=== PATIENT | male | born 1955 | race African-American/Black ===

== ENCOUNTER 2016-09-30 10:00 | Emergency (ER) | payer SELFPAY ==
[~2016-09-30] VITALS: Ht 185.4 cm; Wt 93.5 kg
[~2016-09-30 10:00] MED LIST: LISI-519 PO
[2016-09-30 10:05] VITALS: BP 125/84; PULSE 103; RESP 17; TEMP 97.6; O2SAT 96
[2016-09-30] MEDS ORDERED: ASPI81CH CHEW (10:22)
[2016-09-30] MEDS ORDERED: SODIUM CHLORIDE 0.9% FLUSH 10 ML FLUSH IVF PRN (10:30)
--- NOTE | 2016-09-30 10:40 | PD ---
HPI Chief Complaint: Dizziness Time Seen by Provider: 10:11 Travel History International Travel<30 days: No Contact w/Intl Traveler<30days: No History of Present Illness HPI 61-year-old male with history of HTN here with complaint of dizziness. For the last 5 days patient has been dizzy. He describes this both as a sense of lightheadedness as though he is going to faint, and a sense of vertigo as though he is ambulating like he is intoxicated. Patient has had now 5 episodes where he has fallen as a result of this. All of which has been when he's gotten up to ambulate. His symptoms certainly are made worse with standing and improved with rest though did not completely resolve with rest. He does have some sense of symptoms being worsened with movement of the head and has had a pressure-like feeling within the right ear but no pain or discharge. No history of vertigo, syncope. Denies any chest pain, shortness of breath or palpitations. PFSH Past Medical History Diminished Hearing: No Hypertension: Yes Immunizations Current: No Tetanus Vaccination: < 5 Years Influenza Vaccination: No Past Surgical History Surgical History: No Previous Surgery Social History Alcohol Use: Yes (1-2 beers per day) Tobacco Use: Yes (1/2 ppd) Substance Use: Yes (occasional marijuana) Allergies-Medications (Allergen,Severity, Reaction): Coded Allergies: No Known Allergies (Verified , 09/30/16) Reported Meds & Prescriptions Reported Meds & Active Scripts Active Lisinopril 5 Mg Tab 5 Mg PO DAILY 7 Days Reported Aspirin 81 Mg Chew 81 Mg CHEW DAILY Review of Systems Except as stated in HPI: all other systems reviewed are Neg Physical Exam Narrative GENERAL: Well-appearing male in no acute distress SKIN: Focused skin assessment warm/dry. HEAD: Normocephalic. EYES: Pupils equal and round. No scleral icterus. No injection or drainage. EOMI without nystagmus ENT: No nasal bleeding or discharge. Mucous membranes pink and moist. TMs clear bilaterally. Minimal cerumen in the right external auditory canal NECK: Supple CARDIOVASCULAR: Regular rate and rhythm. No murmur appreciated. RESPIRATORY: No accessory muscle use. Clear to auscultation. Breath sounds equal bilaterally. GASTROINTESTINAL: Abdomen soft, non-tender, nondistended. MUSCULOSKELETAL: No obvious deformities. No edema. NEUROLOGICAL: Awake and alert. No obvious cranial nerve deficits. Motor grossly within normal limits. Normal speech. With [id number] and heel [place] patient doesn't have any evidence of ataxia, however when patient ambulates with tandem gait he is ataxic with veering to the right. PSYCHIATRIC: Appropriate mood and affect; insight and judgment normal. Data Data Last Documented VS Vital Signs Date Time Temp Pulse Resp B/P Pulse Ox O2 Delivery O2 Flow Rate FiO2 09/30/16 11:06 83 16 103/60 84 16 120/80 122/80 09/30/16 11:01 97 Room Air 09/30/16 10:05 97.6 Orders Electrocardiogram (09/30/16 10:30) Prothrombin Time / Inr (Pt) (09/30/16 10:30) Act Partial Throm Time (Ptt) (09/30/16 10:30) Complete Blood Count With Diff (09/30/16 10:30) Basic Metabolic Panel (Bmp) (09/30/16 10:30) Troponin I (09/30/16 10:30) Ecg Monitoring (09/30/16 10:30) Iv Access Insert/Monitor (09/30/16 10:30) Oximetry (09/30/16 10:30) Sodium Chloride 0.9% Flush (Ns Flush) (09/30/16 10:30) Mri Brain W/O Contrast (09/30/16 ) Labs Laboratory Tests Test 09/30/16 10:26 White Blood Count 4.3 TH/MM3 Red Blood Count 4.73 MIL/MM3 Hemoglobin 15.0 GM/DL Hematocrit 44.8 % Mean Corpuscular Volume 94.7 FL Mean Corpuscular Hemoglobin 31.7 PG Mean Corpuscular Hemoglobin 33.5 % Concent Red Cell Distribution Width 12.8 % Platelet Count 169 TH/MM3 Mean Platelet Volume 9.6 FL Neutrophils (%) (Auto) 28.9 % Lymphocytes (%) (Auto) 57.0 % Monocytes (%) (Auto) 11.9 % Eosinophils (%) (Auto) 1.5 % Basophils (%) (Auto) 0.7 % Neutrophils # (Auto) 1.3 TH/MM3 Lymphocytes # (Auto) 2.5 TH/MM3 Monocytes # (Auto) 0.5 TH/MM3 Eosinophils # (Auto) 0.1 TH/MM3 Basophils # (Auto) 0.0 TH/MM3 CBC Comment DIFF FINAL Differential Comment Prothrombin Time 11.0 SEC Prothromb Time International 1.0 RATIO Ratio Activated Partial 29.0 SEC Thromboplast Time Sodium Level 135 MEQ/L Potassium Level 3.9 MEQ/L Chloride Level 98 MEQ/L Carbon Dioxide Level 28.8 MEQ/L Anion Gap 8 MEQ/L Blood Urea Nitrogen 13 MG/DL Creatinine 0.95 MG/DL Estimat Glomerular Filtration 98 ML/MIN Rate Random Glucose 101 MG/DL Calcium Level 9.7 MG/DL Troponin I LESS THAN 0.02 NG/ML MDM Medical Decision Making Medical Screen Exam Complete: Yes Emergency Medical Condition: Yes Medical Record Reviewed: Yes Differential Diagnosis 61-year-old male here with complaint of dizziness 5 days. Differential includes central versus peripheral vertigo such as posterior circulation mass, infarct, vertebrobasilar insufficiency, BPPV, Mnire's, labyrinthitis as well as arrhythmia, electrolyte abnormality, symptomatic anemia, dehydration, presyncope. Narrative Course Patient placed on monitor, IV established and blood obtained. Twelve-lead EKG shows sinus rhythm with borderline LVH but no notable ST abnormalities, normal intervals. CBC, BMP, troponin, coags unremarkable. MRI of the brain negative. Patient reassured and will be discharged home. Diagnosis Primary Impression: Lightheadedness Additional Impression: Pre-syncope Referrals: Primary Care Physician call for appointment Additional Instructions: EKG, laboratory workup and MRI of the brain today were normal. Drink plenty of fluids and follow-up with primary care provider symptoms persist. Med/Other Pt SpecificInfo: No Change to Meds Disposition: 01 DISCHARGE HOME Condition: Stable Molly Kohler MD Sep 30, 2016 10:40
[2016-09-30 10:49] LABS: AUTOMATED NEUTROPHIL # 1.3 TH/MM3 (1.8-7.7); BASOPHIL % 0.7 % (0.0-2.0); EOSINOPHIL # 0.1 TH/MM3 (0-0.4); EOSINOPHIL % 1.5 % (0.0-4.0); HEMATOCRIT 44.8 % (39.0-51.0); HEMO FLAGS DIFF FINAL; LYMPHOCYTE # 2.5 TH/MM3 (1.0-4.8); MEAN CELL VOLUME 94.7 FL (80.0-100.0); MEAN CORPUSCULAR HEMOGLOBIN 31.7 PG (27.0-34.0); MEAN CORPUSCULAR HGB CONC 33.5 % (32.0-36.0); MONO % 11.9 % (0.0-8.0); NEUT % 28.9 % (16.0-70.0); PLATELET COUNT 169 TH/MM3 (150-450); RED BLOOD COUNT 4.73 MIL/MM3 (4.50-5.90); RED CELL DISTRIBUTION WIDTH 12.8 % (11.6-17.2); WHITE BLOOD COUNT 4.3 TH/MM3 (4.0-11.0)
[2016-09-30 11:01] VITALS: BP 103/55; PULSE 82; RESP 16; O2SAT 97
[2016-09-30 11:06] VITALS: BP_SYST 103; BP_SYST 120; BP_SYST 122; BP_DIAS 60; BP_DIAS 80; RESP 16
[2016-09-30 11:15] LABS: ANION GAP 8 MEQ/L (5-15); BICARBONATE 28.8 MEQ/L (21.0-32.0); BLOOD UREA NITROGEN 13 MG/DL (7-18); CHLORIDE 98 MEQ/L (98-107); GLOMERULAR FILTRATION RATE 98 ML/MIN (>89); SODIUM (NA) 135 MEQ/L (136-145)
[2016-09-30 11:24] LABS: POTASSIUM 3.9 MEQ/L (3.5-5.1)
--- NOTE | 2016-09-30 13:25 | RADRPT ---
EXAM DATE/TIME: 09/30/2016 12:49 [facility] COMPARISON: No previous studies available for comparison. INDICATIONS : Dizziness with right sided weakness for 5 days. MEDICAL HISTORY : Hypertension. SURGICAL HISTORY : None. ENCOUNTER: Subsequent ACUITY: 4-6 days PAIN SCORE: 0/10 LOCATION: facial TECHNIQUE: Multiplanar, multisequence MRI of the brain was performed without contrast. FINDINGS: CEREBRUM: The ventricles are normal for age. No evidence of midline shift, mass lesion, hemorrhage or acute in farction. No extraaxial fluid collections are seen. The pituitary gland and suprasellar cistern are normal in configuration. WHITE MATTER: No significant signal abnormalities are seen in the white matter. POSTERIOR FOSSA: The cerebellum and brainstem are intact. The 4th ventricle is midline. The cerebellopontine angle is unremarkable. The cerebellar tonsils are normal in position. DIFFUSION IMAGING: No focal areas of restricted diffusion are seen. No evidence of acute infarction. EXTRACRANIAL: The visualized portions of the orbits and paranasal sinuses are unremarkable. CONCLUSION: Normal examination. Mickey Smith MD on September 30, 2016 at 13:23 Board Certified Radiologist. This report was verified electronically.
--- NOTE | 2016-10-01 11:54 | EKG ---
Date Performed: 09/30/2016 Time Performed: 10:20:36 PTAGE: 61 years EKG: Sinus rhythm WITH OCCASIONAL SUPRAVENTRICULAR PREMATURE COMPLEXES SEPTAL MYOCARDIAL INFARCTION ABNORMAL ECG PREVIOUS TRACING : 02/02/2008 06.32 DOCTOR: Trevor Martinez Interpretating Date/Time 10/01/2016 11:47:05
== END 2016-09-30 14:13 | disposition home or self-care (01) ==
LOC: NEPD 10:00
DX: R42 Dizziness and giddiness (principal); R55 Syncope and collapse; R94.31 Abnormal electrocardiogram [ECG] [EKG]
CPT/HCPCS: 70551; 80048; 84484; 85025; 85610; 85730; 93005